=== PATIENT | female | born 2000 | race Caucasian/White ===

== ENCOUNTER → 2020-04-17 16:07 | Outpatient (CLI) | payer OTHER, SELFPAY ==
--- NOTE | 2020-04-17 16:13 | DI.RAD.S_ITS ---
PROCEDURE: XR LUMBAR SPINE 2-3V INDICATIONS: spine pain TECHNIQUE: 3 views of the lumbar spine were acquired. COMPARISON: None. FINDINGS: Bones: 5 [id number] vertebrae are present. There is slight levo scoliotic (6 degree) bony alignment. No vertebral body compression fractures. No suspicious bony lesions. Soft tissues: Overlying bowel gas pattern is normal. No suspicious soft tissue calcifications. IMPRESSION: No trauma found. Convex leftward scoliosis centered at the L3 level of the LS spine but measuring only 6 degrees. Dictated by: Florencio Alfonso M.D. on 04/17/2020 at 16:43 Approved by: Florencio Alfonso M.D. on 04/17/2020 at 16:44
== END ==
PROVIDERS: Referring Provider Chiropractor; Visit Provider Chiropractor
DX: M54.5 Low back pain (principal)
CPT/HCPCS: 72100